=== PATIENT | female | born 1995 | race Caucasian/White ===

== ENCOUNTER → 2017-11-10 | Outpatient (REF) ==
--- NOTE | 2017-11-10 16:22 | EKG ---
FACILITY: [facility] [place] PATIENT NAME: DAVY PEREA : [id number] MR: [id number] V: [id number] EXAM DATE: ORDERING PHYSICIAN: [facility] TECHNOLOGIST: RIYA Test Reason : Blood Pressure : / mmHG Vent. Rate : 063 BPM Atrial Rate : 063 BPM P-R Int : 144 ms QRS Dur : 088 ms QT Int : 408 ms P-R-T Axes : 016 050 028 degrees QTc Int : 417 ms Normal sinus rhythm Septal infarct , age undetermined No ST-T abnormalities Inferior T inversion/flattening has resolved compared to previous Confirmed by MOON VILLALBA ([id number]) on 11/10/2017 5:48:53 PM Referred By: Confirmed By:MOON VILLALBA
--- NOTE | 2017-11-10 16:26 | RADIOLOGY IMAGING REPORT ---
FACILITY: [facility] PATIENT NAME: Zuleima Campa : 1995 MR: [id number] V: [id number] EXAM DATE: ORDERING PHYSICIAN: [facility] TECHNOLOGIST: [facility] Patient: Zuleima Campa : 1995 Visit/Account:[id number] Date of Sevice: 11/10/2017 CHEST PA AND LAT History: Minutes and chest pain. Comparison 03/24/2017. FINDINGS: Lungs are clear, no effusion. No pneumothorax. Heart size within normal limits. Mediastinal contour w ithin normal limits. The sternum has a ventral apex angulation which may be congenital or due to gail te trauma. No acute appearing bony abnormality. IMPRESSION: No evidence of acute cardiopulmonary disease. Report Dictated By: Deep Lazcano MD at 11/10/2017 4:21 PM Report E-Signed By: Deep Lazcano MD at 11/10/2017 4:23 PM WSN:[id number]
--- NOTE | 2017-11-12 09:20 | RADIOLOGY IMAGING REPORT ---
FACILITY: [facility] PATIENT NAME: DAVY PEREA : [id number] MR: [id number] V: [id number] EXAM DATE: ORDERING PHYSICIAN: OTHER OTHER TECHNOLOGIST: Loren Wilson EXAMINATION:TWO-DIMENSIONAL ECHOCARDIOGRAPH REASON:CP 2D Measurements (normal values in centimeters) LV endLV endRV endVent.LV PostAorticLeftPercent DiastolicSystolicDiastolicSeptumWallRootAtriumShortening (3.5-5.7)(0.9-2.6)(0.6-1.1)(0.6-1.1)(2.0-3.7)(1.9-4.0)(25-35%) [id number]% STROKE VOLUME: 51ml ESTIMATED EJECTION FRACTION:62% PARASTERNAL LONG AXIS: Overall left ventricular systolic function appears to be normal & chamber sizes also appear to be normal. Color examination of the valves was unremarkable in this view. No wall motion abnormalities are noted. Right ventricle is normal in size. It also appears to function normally with a TAPSE of 2.4. PARASTERNAL SHORT AXIS: Overall left ventricular function appears to be normal. Aortic valve was not well seen but probably is trileaflet in configuration. APICAL FOUR AND TWO CHAMBER: Normal left ventricular ejection fraction. Normal chamber sizes. Aortic valve area & mitral valve area both measure within normal ranges at 2.5 & 2.4cm2 respectively. Left atrial & right atrial volumes measure within normal ranges at 14 & 19ml/m2. Trace of tricuspid insufficiency is noted. The tricuspid regurgitation Vmax measured 2.33m/sec. SUBCOSTAL VIEW: No pericardial effusion was noted. No atrioseptal or ventriculoseptal defects were appreciated. Definity contrast was used. No thrombi are noted in any of the chambers but the left atrial appendage was not seen. No wall motion abnormalities are noted. Doppler examination of the mitral valve in diastole is normal. OVERALL IMPRESSION: 1. Essentially normal 2D echocardiograph. Normal left ventricular systolic & diastolic function. Estimated ejection fraction of 62%. No valvular abnormalities are noted. There was a trace of tricuspid insufficiency probably physiologic in nature. The estimated right ventricular systolic pressure within normal ranges at 25mm Hg. Definity contrast was used. No thrombi are noted in any of the chambers. Left atrial appendage was not seen. Dictated by: Alyson Bond M.D. on 11/11/2017 at 8:04 Transcribed by: MIREILLE on 11/12/2017 at 8:31 Approved by: Alyson Bond M.D. on 11/12/2017 at 9:19 [facility]
== END ==
LOC: US 02:18
PROVIDERS: ATTEND Nurse Practitioner Family
DX: R07.9 Chest pain, unspecified (principal); I36.1 Nonrheumatic tricuspid (valve) insufficiency
CPT/HCPCS: 71046; 93005; 93306